=== PATIENT | male | born 1970 | race Caucasian/White ===

== ENCOUNTER 2023-10-20 15:28 | Emergency (ER) | payer BC ==
--- NOTE | 2023-10-20 15:40 | EDPHYS ---
Physician Documentation [facility] Name: Raulito Escobar Age: 53 yrs Sex: Male : 1970 Arrival Date: 10/20/2023 Time: 15:28 Bed IW1 Private MD: ED Physician Demetrio Jean-Baptiste HPI: 10/19 15:44 This 53 yrs old Male presents to ER via Ambulatory with complaints of Wound Check. kb 15:44 Pt is a 53 year old male who had a port placed 3 weeks ago to left upper chest for kb chemo. States the site became infected, he is on his second round of antibiotics and it is much better, but still isn't closed. Came in to see if he needed to have it sutured shut. States his oncologist and surgeon had placed him on the second round of antibiotics hoping that it would heal, otherwise he will have to have the port removed and a new one placed. . Historical: - PMHx: 15:37 colon ca; as6 - PSHx: 15:37 port placement; as6 - Immunization history:: Adult Immunizations up to date. - Infectious Disease History:: Denies. - Social history:: Smoking status: Patient denies any tobacco usage or history of. ROS: 15:44 Constitutional: As per HPI kb Exam: 15:44 Constitutional: This is a well developed, well nourished patient who is awake, alert, kb and in no acute distress. Head/Face: Normocephalic, atraumatic. ENT: Moist Mucous membranes Cardiovascular: Regular rate Respiratory: Respirations even and unlabored. No increased work of breathing. Talking in full sentences MS/ Extremity: Pulses equal, no cyanosis. Neurovascular intact. Full, normal range of motion. Neuro: Awake and alert, GCS 15, oriented to person, place, time, and situation. Moves all extremities. Normal gait. 15:44 Skin: open incision to left upper chest with mild purulent drainage. No erythema or swelling to site. . Vital Signs: 15:35 BP 166 / 105; Pulse 94; Resp 18 S; Temp 97.2; Pulse Ox 99% ; as6 MDM: 15:34 Patient medically screened. kb 15:44 Differential diagnosis: cellulitis, infected wound, nonhealing wound. Data reviewed: kb vital signs, nurses notes. Counseling: I had a detailed discussion with the patient and/or guardian regarding the historical points, exam findings, and any diagnostic results supporting the discharge/admit diagnosis, the need for outpatient follow up, a family practitioner, to return to the emergency department if symptoms worsen or persist or if there are any questions or concerns that arise at home. ED course: Pt educated on risk of infection if incision is closed up at this point. Educated to continue antibiotics and follow up with oncologist/surgeon. Verbal understanding received. . Administered Medications: No medications were administered Disposition: 15:53 Co-signature as Attending Physician, Demetrio Jean-Baptsite MD I reviewed the patient's care rn provided by the Advanced Practice Provider and agree with the diagnosis and treatment plan. Disposition Summary: 10/20/23 15:40 Discharge Ordered Notes: Location: Home kb Condition: Stable kb Diagnosis - Encounter for wound evaluation kb - Encounter for wound evaluation - open wound left upper chest kb Followup: kb - With: Emergency Department - When: As needed - Reason: Worsening of condition Followup: kb - With: Private Physician - When: 2 - 3 days - Reason: Recheck today's complaints, Continuance of care, Re-evaluation by your physician Discharge Instructions: - Discharge Summary Sheet kb - Wound Care, Adult kb Forms: - Medication Reconciliation Form kb - Antibiotic Education kb - Prescription Opioid Use kb - Patient Portal Instructions kb - Leadership Thank You Letter kb Signatures: Gertrudis Currie FNP-Jarad LAMASP-Demetrio Busch MD MD rn Slawson, Ashby, RN RN as6
--- NOTE | 2023-10-20 15:40 | ER ---
Nurse's Notes [facility] Name: Raulito Escobar Age: 53 yrs Sex: Male : 1970 Arrival Date: 10/20/2023 Time: 15:28 Bed IW1 Private MD: Diagnosis: Encounter for wound evaluation;Encounter for wound evaluation - open wound left upper chest Presentation: 10/19 15:35 Chief complaint: Patient states: pt had a port placed and there is gaping and pt wants as6 sutures. Coronavirus screen: At this time, the client does not indicate any symptoms associated with coronavirus-19. Ebola Screen: No symptoms or risks identified at this time. Initial Sepsis Screen: Does the patient meet any 2 criteria? No. Patient's initial sepsis screen is negative. Does the patient have a suspected source of infection? No. Patient's initial sepsis screen is negative. Risk Assessment: Do you want to hurt yourself or someone else? Patient reports no desire to harm self or others. Onset of symptoms was October 20, 2023. 15:35 Method Of Arrival: Ambulatory as6 15:35 Acuity: CARIDAD 4 as6 Triage Assessment: 15:40 General: Appears in no apparent distress. Behavior is calm, cooperative. Pain: Denies as6 pain. Derm: Wound noted anterior aspect of left upper chest Wound is port placement noted, drainage. Historical: - PMHx: 15:37 colon ca; as6 - PSHx: 15:37 port placement; as6 - Immunization history:: Adult Immunizations up to date. - Infectious Disease History:: Denies. - Social history:: Smoking status: Patient denies any tobacco usage or history of. Screenin:39 [facility] ED Fall Risk Assessment (Adult) History of falling in the last 3 months, as6 including since admission No falls in past 3 months (0 pts) Confusion or Disorientation No (0 pts) Intoxicated or Sedated No (0 pts) Impaired Gait No (0 pts) Mobility Assist Device Used No (0 pt) Altered Elimination No (0 pt) Score/Fall Risk Level 0 - 2 = Low Risk Oriented to surroundings, Maintained a safe environment, Educated pt \T\ family on fall prevention, incl call for assistance when getting out of bed, Assessed \T\ reinforced patient's understanding of fall precautions. Abuse screen: Denies threats or abuse. Denies injuries from another. Nutritional screening: No deficits noted. Tuberculosis screening: No symptoms or risk factors identified. Vital Signs: 15:35 BP 166 / 105; Pulse 94; Resp 18 S; Temp 97.2; Pulse Ox 99% ; as6 ED Course: 15:32 Patient arrived in ED. mg5 15:34 Gertrudis Currie FNP-C is [facility]. kb 15:34 Demetrio Jean-Baptiste MD is Attending Physician. kb 15:37 Triage completed. as6 15:37 Arm band placed on. as6 15:40 Bed in low position. Call light in reach. Provided Education on: follow up. as6 15:40 No provider procedures requiring assistance completed. Patient did not have IV access as6 during this emergency room visit. Administered Medications: No medications were administered Medication: 15:39 VIS not applicable for this client. as6 Outcome: 15:40 Discharge ordered by . kb 15:40 Discharged to home ambulatory, with significant other, as6 15:40 Condition: stable 15:40 Discharge instructions given to patient, Instructed on discharge instructions, follow up and referral plans. wound care, Demonstrated understanding of instructions, follow-up care, wound care, 15:42 Patient left the ED. Signatures: Gertrudis Currie FNP-C FNP-Ckb Blanchard, Shelby, JULEE RN Armand Anderson, JULEE RN as6 Shannon Torres mg5
[2023-10-20 15:50] VITALS: BP 166/105; TEMP 97.2; O2SAT 99
== END 2023-10-20 15:42 | disposition home or self-care (01) ==
LOC: ER 15:28
DX: Z45.2 Encounter for adjustment and management of vascular access device (principal)
CPT/HCPCS: 99282